=== PATIENT | female | born 1970 | race Caucasian/White ===

== ENCOUNTER → 2018-09-28 | Outpatient (CLI) | payer OTHER | END | disposition home or self-care (01) | LOC: ORTHO 08:52 | DX: M21.852 Other specified acquired deformities of left thigh (principal) ==

== ENCOUNTER → 2019-07-24 | Outpatient (CLI) | payer OTHER | END | disposition home or self-care (01) | LOC: ORTHO 00:34 | DX: M25.562 Pain in left knee (principal); M25.561 Pain in right knee; M25.552 Pain in left hip; Q89.9 Congenital malformation, unspecified ==

== ENCOUNTER 2020-05-29 10:33 | Emergency (ER) | payer OTHER ==
[~2020-05-29] VITALS: Ht 160 cm; Wt 63.5 kg
[2020-05-29] MEDS ORDERED: CEPHALEXIN500 M1 PO (12:22)
[2020-05-29 12:58] VITALS: BP 112/62
== END 2020-05-29 12:37 | disposition home or self-care (01) ==
LOC: ED 10:33
DX: S61.211A Laceration without foreign body of left index finger without damage to nail, initial encounter (principal); W26.0XXA Contact with knife, initial encounter; Y93.89 Activity, other specified; Y92.69 Other specified industrial and construction area as the place of occurrence of the external cause; Y99.9 Unspecified external cause status